=== PATIENT | male | born 1990 | race Caucasian/White ===

== ENCOUNTER 2021-05-05 11:28 | Emergency (ER) | payer MEDICAID, SELFPAY | END 2021-05-05 15:52 | disposition left against medical advice (07) | PROVIDERS: Emergency Provider Emergency Medicine | DX: R06.02 Shortness of breath (principal) ==

== ENCOUNTER 2021-05-09 20:04 | Emergency (ER) | payer MEDICAID, SELFPAY ==
[2021-05-09 20:06] VITALS: BP 160/102; PULSE 107; RESP 16; TEMP 36.5; O2SAT 98; BMI 33.0
--- NOTE | 2021-05-10 | ED.GENADULT ---
HPI - General Adult General Chief complaint: General Medical Stated complaint: high bp Time Seen by Provider: 05/10/21 00:00 Source: patient Mode of arrival: ambulatory Limitations: no limitations History of Present Illness HPI narrative: 30-year-old male came in for evaluation of high blood pressure. [employer]-one pleasant patient recently diagnosed with COVID 19 infection, patient has been home and self quarantine for the past 2 days, patient with history of high blood pressure take 10 mg of lisinopril once a day normally. Noticed to have high blood pressure reading at home patient confirmed that he is compliant with his medication at home. Patient also has been complaining of bilateral flank pain which is worsening since he was diagnosed with COVID. Related Data Allergies Allergy/AdvReac Type Severity Reaction Status Date / Time amlodipine [AMLODIPINE] Allergy Unknown SWELLING Unverified 06/05/20 17:04 Review of Systems Review of Systems: All other systems are reviewed and are negative Constitutional: Reports as per HPI and Reports no additional constitutional complaints Eyes: Reports as per HPI and Reports no additional eye complaints Reports system reviewed and no additional complaints, except as documented Cardiovascular: Reports as per HPI and Reports no additional cardiovascular complaints Respiratory: Reports as per HPI and Reports no additional respiratory complaints Gastrointestinal: Reports as per HPI and Reports no additional gastrointestinal complaints Genitourinary: Reports no additional female genitourinary complaints Musculoskeletal: Reports no additional musculoskeletal complaints Skin/Breast: Reports system reviewed and no additional complaints, except as docu Psychiatric: Reports no additional psychiatric complaints Endocrine: Reports no additional endocrine complaints Hematologic/Lymphatic: Reports no additional hematologic/lymphatic complaints Allergic/Immunologic: Reports no additional allergic/immunologic complaints Reports system reviewed and no additional complaints, except as documented and Reports Abnormal speech present [facility] Past Medical History Medical History Asthma Social History Social History Advance Directives: No Advance Directives Information Provided: Yes Physical Exam Vital Signs: Vital Signs: Last Vital Signs Temp 97.7 F 05/09/21 20:06 Pulse 107 H 05/09/21 20:06 Resp 16 05/09/21 20:06 BP 160/102 H 05/09/21 20:06 Pulse Ox 98 05/09/21 20:06 Body Mass Index 33.0 Vital signs have been reviewed as appeared to be correct. Blood pressure elevated. Heart rate elevated. Respiration rate normal. Temperature normal. Oxygen saturation normal. Appearance: Alert. Oriented X3. No acute distress. Head: Normal external exam. Normocephalic. Atraumatic. No Marie signs noted. No raccoon eyes noted Eyes: PERRLA. EOMI. Conjunctiva and sclera normal. Eyelids normal. ENT: TM's Normal. Pharynx normal. Uvula midline. Moist mucous membranes. No trismus noted. No drooling noted. No muffled voice noted. Neck: Normal inspection. Neck supple. FROM. No adenopathy. Thyroid Normal. No meningeal signs. No neck mass noted. CVS: Normal heart rate and rhythm. Heart sound normal. No murmurs noted. Pulses normal throughout. Respiratory: No respiratory distress. Painless inspiration. Breath sounds normal. No wheezes/rales/rhonchi noted. Chest nontender. No accessory muscle usage noted or decreased air movement noted. Abdomen: Soft and nontender. Bowel sounds normal in all 4 quadrants. No distention noted. No organomegaly noted. No visible injury noted. Back: No CVA tenderness. Full range of motion noted. Skin: Skin warm and dry. Normal skin color. Normal skin turgor. No rashes/lesions/lacerations noted. Extremities: No lower extremity edema. Extremities exhibit normal range of motion. Extremities nontender. Neuro: Oriented X 3. Cranial nerve exam: II-XII are grossly intact No motor deficit. No sensory deficit. Reflexes normal. Course Course Course Narrative: 30-year-old male hypertensive on 10 mg of lisinopril. Patient was given 1 extra dose of lisinopril in the emergency department. Bilateral flank pain that could be normal with COVID infection. UA is clear. Discharge Plan Discharge Clinical Impression: Hypertension, COVID-19 Patient Disposition: Home, Self-Care Instructions: Hypertension (ED) Additional Instructions: Self-quarantine for total of 2 weeks, return if any difficulty breathing, keep recording reading for blood pressure expected lead to be slightly higher than your normal with the COVID infection. If blood pressure is extremely high seek immediate medical attention. Referrals: [facility] [Primary Care Provider] - 2 weeks
[2021-05-10 00:18] VITALS: BP 138/103; PULSE 93; RESP 18; O2SAT 99
[2021-05-10 01:07] VITALS: BP 133/103; PULSE 82
[2021-05-10] MEDS: lisinopriL 10 MG TABLET PO (01:07)
--- NOTE | 2021-05-10 01:13 | PC.NURSE ---
Pt medicated per MAR for BP of 133/103. Pt laughing and joking with this RN without distress noted. pt inquiring about length of time until discharge for ride arrangements and time frame provided without additional questions/concerns. Pt given apple juice per request. UA obtained and sent
[2021-05-10 01:16] LABS: Glucose Urine UA NEG (NEG); Leukocyte Esterase Urine NEG (NEG); Nitrite Urine NEG (NEG); Specific Gravity - Urine 1.025 (1.005-1.025); Urine Blood NEG (NEG); Urine Ketones NEG (NEG); Urine Protein NEG (NEG-TRACE)
[2021-05-10 01:19] LABS: Appearance Urine CLEAR; Color Urine YELLOW
[2021-05-10 02:24] VITALS: BP 130/90; PULSE 98; RESP 18; O2SAT 99
== END 2021-05-10 02:24 | disposition home or self-care (01) ==
PROVIDERS: Emergency Provider Emergency Medicine
DX: I10 Essential (primary) hypertension (principal); U07.1 COVID-19
CPT/HCPCS: 81003; 99283; 99284

== ENCOUNTER 2024-06-29 15:39 | Outpatient (REF) | payer MEDICAID, SELFPAY ==
[2024-06-29 16:15] LABS: MANUAL DIFF FLAG NO
[2024-06-29 16:17] LABS: Basophils Percent Auto 0.5 % (0-2); Eosinophils Absolute Auto 0.2 X10*3/uL (0.0-0.4); Eosinophils Percent Auto 2.4 % (0-4); Hematocrit 43.1 % (42.0-52.0); Hemoglobin 14.9 g/dl (14.0-18.0); Imm Gran Abs Auto 0.03 X10*3/uL (0.00-0.03); Imm Gran Pct Auto 0.4 % (0.0-0.4); Lymphocytes Absolute Auto 2.3 X10*3/uL (1.2-4.9); Lymphocytes Percent Auto 28.2 % (20-40); Mean Corpuscular HGB Conc 34.6 g/dl (31.0-36.0); Mean Corpuscular Hemoglobin 30.2 pg (27.0-33.0); Mean Corpuscular Volume 87.2 fL (80.0-98.0); Mean Platelet Volume 11.4 fL (9.4-12.4); Monocytes Absolute Auto 0.7 X10*3/uL (0.1-1.2); Monocytes Percent Auto 8.2 % (2-11); Neutrophils Percent Auto 60.3 % (45-73); Platelet Count 201 X10*3/uL (160-400); Red Blood Count 4.94 X10*6/uL (4.60-5.80); Red Cell Distribution Width 12.1 % (11.0-16.0); White Blood Count 8.3 X10*3/uL (4.8-10.8)
[2024-06-29 16:53] LABS: Creatinine Urine 141.16 mg/dL; Microalbum/Creatinine Ratio Ur 4.9 ug/mg cr (<30)
[2024-06-29 17:18] LABS: Alanine Aminotransferase 54 U/L (0-40); Albumin Level 4.4 g/dL (3.5-5.0); Alkaline Phosphatase 70 U/L (39-117); Anion Gap 12 (12-20); Aspartate Amino Transferase 25 U/L (5-37); Bilirubin Total 0.5 mg/dL (0.0-1.0); Blood Urea Nitrogen 11 mg/dL (9-16); Carbon Dioxide 28 mmol/L (22-29); Chloride 105 mmol/L (96-108); Cholesterol 166 mg/dL (<200); Estimated Glomerular Filt Rate > 60; Glucose Random 111 mg/dL (60-115); HDL Cholesterol 56 mg/dL (>40); LDL Cholesterol Calculated 91 mg/dL (<100); Potassium 3.6 mmol/L (3.3-5.1); Sodium 141 mmol/L (135-145); Total Protein 7.3 g/dL (6.5-8.0); Triglycerides 99 mg/dL (<150)
[2024-06-29 17:32] LABS: TSH reflex Free T4 0.79 uIU/mL (0.32-4.0)
== END 2024-06-29 15:40 | disposition home or self-care (01) ==
LOC: HO.HHCL 15:39
PROVIDERS: Visit Provider Internal Medicine Geriatric Medicine
DX: I10 Essential (primary) hypertension (principal); E78.00 Pure hypercholesterolemia, unspecified; R60.9 Edema, unspecified
CPT/HCPCS: 36415; 80053; 80061; 82043; 82570; 84443; 85025

== ENCOUNTER 2024-09-25 14:07 | Outpatient (REF) | payer MEDICAID, SELFPAY ==
[2024-09-25 16:12] LABS: MANUAL DIFF FLAG NO
[2024-09-25 16:16] LABS: Basophils Percent Auto 0.4 % (0-2); Eosinophils Absolute Auto 0.2 X10*3/uL (0.0-0.4); Eosinophils Percent Auto 2.3 % (0-4); Hematocrit 43.4 % (42.0-52.0); Hemoglobin 14.7 g/dl (14.0-18.0); Imm Gran Abs Auto 0.02 X10*3/uL (0.00-0.03); Imm Gran Pct Auto 0.3 % (0.0-0.4); Lymphocytes Absolute Auto 1.9 X10*3/uL (1.2-4.9); Lymphocytes Percent Auto 26.2 % (20-40); Mean Corpuscular HGB Conc 33.9 g/dl (31.0-36.0); Mean Corpuscular Hemoglobin 29.5 pg (27.0-33.0); Mean Platelet Volume 11.3 fL (9.4-12.4); Monocytes Absolute Auto 0.8 X10*3/uL (0.1-1.2); Monocytes Percent Auto 10.6 % (2-11); Neutrophils Absolute Auto 4.4 x10*3/uL (2.0-8.3); Neutrophils Percent Auto 60.2 % (45-73); Platelet Count 232 X10*3/uL (160-400); Red Blood Count 4.99 X10*6/uL (4.60-5.80); Red Cell Distribution Width 12.1 % (11.0-16.0); White Blood Count 7.3 X10*3/uL (4.8-10.8)
[2024-09-25 16:28] LABS: Estimated Average Glucose 123 mg/dL; Hemoglobin A1C 152.8235 umol/L; Hemoglobin A1c % 5.9 % (<6.0); Total Hemoglobin (HGBA1C) 3774.6647 umol/L
[2024-09-25 17:02] LABS: Alanine Aminotransferase 104 U/L (0-40); Albumin Level 4.4 g/dL (3.5-5.0); Anion Gap 11 (12-20); Aspartate Amino Transferase 42 U/L (5-37); Bilirubin Total 0.3 mg/dL (0.0-1.0); Blood Urea Nitrogen 10 mg/dL (9-16); Calcium 9.7 mg/dL (8.4-10.2); Carbon Dioxide 28 mmol/L (22-29); Chloride 106 mmol/L (96-108); Cholesterol 251 mg/dL (<200); Estimated Glomerular Filt Rate > 60; Glucose Random 108 mg/dL (60-115); HDL Cholesterol 49 mg/dL (>40); LDL Cholesterol Calculated 141 mg/dL (<100); Sodium 141 mmol/L (135-145); Total Protein 7.6 g/dL (6.5-8.0); Triglycerides 306 mg/dL (<150)
[2024-09-25 17:22] LABS: Alkaline Phosphatase 70 U/L (39-117)
[2024-09-25 17:31] LABS: TSH reflex Free T4 0.88 uIU/mL (0.32-4.0)
[2024-09-26 09:38] LABS: HIV AB/AG Nonreactive (Nonreactive); HIV Num 1 0.06 S/CO (0.00-0.99); ~HepC Num1 0.07 S/CO (0.00-0.79); ~Hepatitis C Antibody Nonreactive (Nonreactive)
== END 2024-09-25 14:08 | disposition home or self-care (01) ==
LOC: HO.HHCL 14:07
PROVIDERS: Visit Provider Internal Medicine
DX: I10 Essential (primary) hypertension (principal)
CPT/HCPCS: 36415; 80053; 80061; 82306; 83036; 84443; 85025; 86803; 87389

== ENCOUNTER → 2024-10-02 20:30 | Outpatient (BNV) | payer MEDICAID, SELFPAY | PROVIDERS: PCP Internal Medicine; Visit Provider Psychiatry & Neurology Neurology | DX: G47.33 Obstructive sleep apnea (adult) (pediatric) (principal) | CPT/HCPCS: 95810 ==

== ENCOUNTER → 2024-10-02 20:30 | Outpatient (REF) | payer MEDICAID, SELFPAY | LOC: HO.SL 20:30 | PROVIDERS: PCP Internal Medicine; Visit Provider Internal Medicine | DX: G47.30 Sleep apnea, unspecified (principal); F31.9 Bipolar disorder, unspecified; F41.1 Generalized anxiety disorder; E66.9 Obesity, unspecified; R06.81 Apnea, not elsewhere classified; G47.10 Hypersomnia, unspecified; R06.83 Snoring | CPT/HCPCS: 95810 ==

== ENCOUNTER → 2024-10-18 08:02 | Outpatient (BNV) | payer MEDICAID, SELFPAY | PROVIDERS: PCP Internal Medicine; Visit Provider Radiology Diagnostic Radiology | DX: N28.1 Cyst of kidney, acquired (principal) | CPT/HCPCS: 76700 ==

== ENCOUNTER 2024-12-12 13:53 | Outpatient (REF) | payer MEDICAID, SELFPAY | END 2024-12-12 13:54 | disposition home or self-care (01) | LOC: HO.HHCLNP 13:53 | PROVIDERS: Visit Provider Internal Medicine | DX: R10.84 Generalized abdominal pain (principal) | CPT/HCPCS: 87338 ==

== ENCOUNTER 2024-12-21 13:22 | Outpatient (REF) | payer MEDICAID, SELFPAY ==
--- OUTSIDE RECORDS SUMMARY | 2024-12-21 15:14 | XMS_ITS | Clinical Summary ---
Author Organization [facility] Address [address] [phone] Phone Care Team Providers Care Automatic Coin Machine Mechanic Name Role Phone Yuli Prakash MD Primary Care Provide r Allergies Active Allergy Reactions Criticality Noted Date Comments Amlodipine 06/29/2024 Leg swelling Hydralazine 08/30/2024 Other Reaction(s): Chest Pain Lisinopril Swelling 08/30/2024 Medications losartan (COZAAR) 100 MG tablet Take 100 mg by mouth 1 (one) time each day Active atorvastatin (LIPITOR) 20 MG tablet Take 20 mg by mouth in the morning. 06/29/20 25 Active famotidine (PEPCID) 10 MG tablet Take 10 mg by mouth in the morning and 10 mg in the evening. Active senna-docusate (PERICOLACE) 8.6-50 MG per tablet Take 1 tablet by mouth in the morning. 4 12/22/19 25 Discontinu ed(Med List Maintenanc e) metoprolol succinate XL (TOPROL XL) 50 MG 24 hr tablet Take 50 mg by mouth in the morning. 4 12/22/19 25 Discontinu ed(Med List Maintenanc e) lamoTRIgine (LaMICtal) 100 MG tablet Take 100 mg by mouth at bed time 4 12/22/19 25 Discontinu ed(Med List Maintenanc e) hydrOXYzine (ATARAX) 25 MG tablet TAKE 1 OR 2 TABLETS BY MOUTH DAILY NEEDED 4 12/22/19 25 Discontinu ed(Med List Maintenanc e) hydroCHLOROthia zide 25 MG tablet Take 25 mg by mouth in the morning. 4 12/22/19 25 Discontinu ed(Med List Maintenanc e) Blood Pressure Monitoring (Blood Pressure Cuff) misc 1 each 4 12/22/19 25 Discontinu ed(Med List Maintenanc e) Active Problems Problem Noted Date Diagnosed Date Constipation 08/30/2024 Primary hypertension 08/30/2024 COVID-19 05/26/2021 Mild intermittent asthma 06/20/2015 Generalized anxiety disorder 06/20/2015 Resistant hypertension 05/23/2015 Obesity 05/23/2015 Encounters Date Type Department Care Team Description 12/21/2024 11:45 AM EDT Office Visit [facility] [address] [phone] Ubaldo Estrada MD Hypertension (Primary Dx); Obstructive sleep apnea syndrome from Last 3 Months Immunizations Name Administration Dates Next Due Influenza, Quadrivalent, With Preservative 06/29 Pneumococcal Polysaccharide 03/18/2015 TD Preservative Free 07/07/2015 Tdap 06/29/2018 Social History Tobacco Use Types Packs/Day Years Used Date Smoking Tobacco: Never Assessed Sex and Gender Information Value Date Recorded Sex Assigned at Not on file Legal Sex Male 1:35 PM EST Gender Identity Not on file Sexual Orientation Not on file Last Filed Vital Signs Vital Sign Reading Time Taken Comments Blood Pressure 129/88 12/21/2024 11:56 AM EDT Pulse - - Temperature - - Respiratory Rate - - Oxygen Saturation - - Inhaled Oxygen Concentration - - Weight 112 kg (248 lb) 12/21/2024 11:56 AM EDT Height 180.3 cm (5' 11 ) 12/21/2024 11:56 AM EDT Body Mass Index 34.59 12/21/2024 11:56 AM EDT Plan of Treatment Upcoming Encounters Date Type Department Care Team (Late st Contact Info) Description 02/07/2025 2:15 PM EDT Office Visit [facility] [address] [phone] Ubaldo Estrada MD [address] [phone] Health Maintenance Due Date Last Done Comments Hepatitis B Vaccine (1 of 3 - 19+ 3-dose series) 08/22 Pneumococcal Vaccine: Pediat rics (0 to 5 Years) and At-Risk Patients (6 to 64 Years) (2 of 2 - PCV) 03/18/2016 03/18/2015 Influenza Vaccine (Season Ended) 2025 06/29/20 18 Insurance , [address] [place] [id number] [place] Care Teams Automatic Coin Machine Mechanic Relationship Specialty Start Date End Date Yuli Prakash MD [address] [place] [phone] PCP - General Internal Medicine 09/03/24
--- OUTSIDE RECORDS SUMMARY | 2024-12-21 15:14 | XMS_ITS | Encounter Summary ---
Author Organization [facility] Address [address] [phone] Phone Care Team Providers Care Renewals Representative Name Role Phone Yuli Prakash MD Primary Care Provide r Reason for Referral * Cardiac Services (Routine) - Pending Review Specialty Diagnoses / Procedures Referred By Conthaja t Referred To Contact Diagnoses Hypertension Procedures Initiate ABPM Monitoring Ubaldo Estrada MD [address] [address] Phone: tel: fax: Referral ID Status Reason Start Date Expiration Date V isits Requested Visits Authorized [id number] Pending Review 12/21/2024 12/21/2025 1 1 Reason for Visit * Reason Comments Chronic Kidney Disease Encounter Details Date Type Department Care Team (Late st Contact Info) Description 12/21/2024 11:45 AM EDT Office Visit [facility] [address] [phone] Ubaldo Estrada MD [address] [phone] Hypertension (Primary Dx); Obstructive sleep apnea syndrome Social History Tobacco Use Types Packs/Day Years Used Date Smoking Tobacco: Never Assessed Sex and Gender Information Value Date Recorded Sex Assigned at Not on file Legal Sex Male 1:35 PM EST Gender Identity Not on file Sexual Orientation Not on file documented as of this encounter Last Filed Vital Signs Vital Sign Reading Time Taken Comments Blood Pressure 129/88 12/21/2024 11:56 AM EDT Pulse - - Temperature - - Respiratory Rate - - Oxygen Saturation - - Inhaled Oxygen Concentration - - Weight 112 kg (248 lb) 12/21/2024 11:56 AM EDT Height 180.3 cm (5' 11 ) 12/21/2024 11:56 AM EDT Body Mass Index 34.59 12/21/2024 11:56 AM EDT documented in this encounter Progress Notes * Ubaldo Estrada MD - 12/21/2024 11:45 AM EDT [facility] Patient Name: Garret Noel, Male Date of : 1990, 34 y.o. Date: 12/21/2024 Referring MD: No primary care provider on file. PCP: Yuli Prakash MD Thank you for allowing me to participate in the care of your patient Reason For Visit: I had the pleasure of seeing your patient for evaluation of HTN. He has a history of HTN for at least 10 years. He complains of headaches, migraines. He does use tobacco and ETOH intake is moderate. He uses marijuana. He lost weight, he does not add salt and he is pretty active playing sports. He denies the use of NSAID. Caffeine intake is moderate. He feels anxious in the clinical setting. The following portions of the patient's chart were reviewed in this encounter and updated as appropriate: Allergies Meds Problems Med Hx Surg Hx Fam Hx Constitutional: Negative for chills, fever, malaise/fatigue and weight loss. HENT: Negative for ear pain, hearing loss and tinnitus. Eyes: Negative for blurred vision, double vision, photophobia and pain. Respiratory: Negative for cough, hemoptysis, sputum production, shortness of breath and wheezing. Cardiovascular: Negative for chest pain, palpitations, orthopnea, claudication and leg swelling. Gastrointestinal: Negative for abdominal pain, diarrhea, nausea and vomiting. Genitourinary: Negative for dysuria, flank pain, frequency, hematuria and urgency. Musculoskeletal: Negative for myalgias. Skin: Negative for itching and rash. Neurological: Negative for dizziness, tingling and headaches. Psychiatric/Behavioral: Negative for depression. Full 13 point review of systems unremarkable except as noted above. Past Medical History: Diagnosis Date Asthma Hypertension History reviewed. No pertinent surgical history. Social History Tobacco Use Smoking status: Not on file Smokeless tobacco: Not on file Substance Use Topics Alcohol use: Not on file History reviewed. No pertinent family history. Current Outpatient Medications Medication Sig Dispense Refill atorvastatin (LIPITOR) 20 MG tablet Take 20 mg by mouth in the morning. famotidine (PEPCID) 10 MG tablet Take 10 mg by mouth in the morning and 10 mg in the evening. losartan (COZAAR) 100 MG tablet Take 100 mg by mouth 1 (one) time each day No current facility-administered medications for this visit. Allergies Allergen Reactions Amlodipine Leg swelling Hydralazine Other Reaction(s): Chest Pain Lisinopril Swelling Objective: Vitals: 12/21/24 1156 BP: 129/88 Weight: 248 lb (112 kg) Height: 5' 11 (1.803 m) Physical Exam Constitutional: Oriented to person, place, and time. HEENT: Mouth/Throat: Oropharynx is clear and moist. Eyes: Pupils are equal, round, and reactive to light. Neck: No JVD present. Cardiovascular: Regular rhythm. Pulmonary/Chest: Breath sounds normal. Abdominal: Soft. There is no abdominal tenderness. Musculoskeletal: Normal range of motion. Neurological: Alert and oriented to person, place, and time. Skin: Skin is warm. Psychiatric: Normal mood and affect. No results found for: EGFRAFR eGFR Non- Date Value Ref Range Status 06/12/2021 114 > OR = 60 mL/min/1.73m2 Final Chemistry Lab Units 09/25/24 1409 06/29/24 1545 CREATININE mg/dL 0.85 0.82 BUN mg/dL 10 11 GLUCOSE mg/dL 108 111 POTASSIUM mmol/L 4 3.6 SODIUM mmol/L 141 141 CO2 mmol/L 28 28 CHLORIDE mmol/L 106 105 ALBUMIN g/dL 4.4 4.4 BILIRUBIN TOTAL mg/dL 0.3 0.5 AST U/L 42* 25 ALT U/L 104* 54* Bone Mineral Lab Units 09/25/24 1409 06/29/24 1545 CALCIUM mg/dL 9.7 10 ALK PHOS U/L 70 70 No lab exists for component: SPECGRAV , GLUCOSEUR , BILIRUBINUR , RBCUR , UPROTEIN , LEUKOCYTESUR , NITRITE PLAN: Assessment & Plan 1. Hypertension 2. Obstructive sleep apnea syndrome 34 year old patient with history of HTN in the setting of normal kidney function. He most likely has a combination of essential HTN and secondary HTN (ISIDORO). He has not yet used a CPAP mask. I will order a 24 hour ambulatory blood pressure monitor to rule out office resistant HTN. Blood pressure is slightly above target. He is on losartan 100 mg daily. REC Life style modification Urine protein to creatinine ratio 24 hour ABPM Orders Placed This Encounter Urine Albumin / Creatinine Ratio Initiate ABPM Monitoring Return in 6 weeks (on 02/01/2025). Ubaldo Estrada MD documented in this encounter Plan of Treatment Upcoming Encounters Date Type Department Care Team (Late st Contact Info) Description 02/07/2025 2:15 PM EDT Office Visit [facility] [address] [phone] Ubaldo Estrada MD [address] [phone] Scheduled Orders Name Type Priority Associated Diagnoses Orde r Schedule Initiate ABPM Monitoring Cardiac Services Routine Hypertension Expected: 12/22/2024 (Approximate), Expires: 12/21/2026 Urine Albumin / Creatinine Ratio Lab Routine Hypertension Expected: 12/21/2024, Expires: 01/20/2026 documented as of this encounter Visit Diagnoses Diagnosis Hypertension- Primary Obstructive sleep apnea syndrome documented in this encounter Care Teams Renewals Representative Relationship Specialty Start Date End Date Yuli Prakash MD [address] [place] [phone] PCP - General Internal Medicine 09/03/24 documented as of this encounter
[2024-12-21 16:44] LABS: Creatinine Urine 60.32 mg/dL; Microalbumin Urine < 5.0 mg/L
== END 2024-12-21 13:23 | disposition home or self-care (01) ==
LOC: HO.HHCL 13:22
PROVIDERS: Visit Provider Internal Medicine Nephrology
DX: I10 Essential (primary) hypertension (principal)
CPT/HCPCS: 82570

== ENCOUNTER 2025-01-31 11:24 | Emergency (ER) | payer MEDICAID, SELFPAY ==
--- NOTE | ~2025-01-31 | XR_ITS ---
EXAMINATION: XR CHEST 1 VIEW HISTORY: cp COMPARISON: There are no prior studies for comparison. FINDINGS: A single AP portable view of the chest performed at 12:02 PM is submitted. There are low lung volumes. The lungs are clear. There is no pleural effusion, pneumothorax, or pulmonary vascular congestion. The heart is normal in size. The bones are intact. XR/XR chest 1V IMPRESSION: Low lung volumes. The lungs are clear. Electronically signed by: Milton Hernadez MD 01/31/2025 12:10 PM EDT
--- NOTE | 2025-01-31 11:27 | ECG_ITS ---
Test Reason : CHEST PAIN Blood Pressure : */* mmHG Vent. Rate : 84 BPM Atrial Rate : 84 BPM P-R Int : 168 ms QRS Dur : 96 ms QT Int : 388 ms P-R-T Axes : 35 -1 18 degrees QTcB Int : 458 ms Normal sinus rhythm with sinus arrhythmia Minimal voltage criteria for LVH, may be normal variant ( R in aVL ) Borderline ECG When compared with ECG of 15-May-2020 05:11, No significant change was found Referred By: Generic ED Physician Electronically Signed By: LJ MILLAN MD
[2025-01-31 11:29] VITALS: BP 159/102; BP 174/125; PULSE 79; PULSE 85; RESP 18; TEMP 36.8; O2SAT 97; O2SAT 98; BMI 33.4
[2025-01-31 11:59] LABS: MANUAL DIFF FLAG NO
[2025-01-31 12:00] LABS: Basophils Percent Auto 0.3 % (0-2); Hematocrit 43.7 % (42.0-52.0); Hemoglobin 15.1 g/dl (14.0-18.0); Imm Gran Abs Auto 0.05 X10*3/uL (0.00-0.03); Imm Gran Pct Auto 0.5 % (0.0-0.4); Lymphocytes Absolute Auto 0.9 X10*3/uL (1.2-4.9); Lymphocytes Percent Auto 8.1 % (20-40); Mean Corpuscular HGB Conc 34.6 g/dl (31.0-36.0); Mean Corpuscular Hemoglobin 30.5 pg (27.0-33.0); Mean Corpuscular Volume 88.3 fL (80.0-98.0); Mean Platelet Volume 11.1 fL (9.4-12.4); Monocytes Absolute Auto 0.6 X10*3/uL (0.1-1.2); Monocytes Percent Auto 5.1 % (2-11); Neutrophils Absolute Auto 9.4 x10*3/uL (2.0-8.3); Platelet Count 197 X10*3/uL (160-400); Red Blood Count 4.95 X10*6/uL (4.60-5.80); Red Cell Distribution Width 11.7 % (11.0-16.0); White Blood Count 10.9 X10*3/uL (4.8-10.8)
--- NOTE | 2025-01-31 12:00 | PC.NURSE ---
Patient presents to ED from [facility] lockup c/o chest pain thats been lasting for 1 week. PMH HTN, patient compliant with medications, patient hypertensive 163/95 but all other vitals normal. Patient denies chest pressure at this time but c/o of abdominal pain 04/28. Patient last BM yesterday, reports constipation. Patient has 20G in LAC. Xray being performed, results pending. Blood collect/sent to lab. UA collected/ sent to lab. Plan of care on going.
--- NOTE | 2025-01-31 12:02 | ED_ITS ---
HPI - Chest Pain General Chief Complaint: Chest Pain Stated Complaint: CHEST PRESSURE X 1 WEEK Time Seen by Provider: 01/31/25 11:48 Source: patient Limitations: no limitations History of Present Illness HPI narrative: This is a 34 years old under arrest presented to the emergency department complaining of chest pain for about a week he also reported nausea and vomiting. He has a history of hypertension he takes losartan he has not taking his BP medication today. MD complaint: chest pain Onset (ago): day(s) (7) Timing of current episode: constant Onset: during rest Pain location: left chest Pain radiation: none Quality: aching Exacerbating factors: nothing Associated symptoms: nausea Risk Factors Coronary artery disease risk factors: none Thoracic aortic dissection risk factors: none Related Data Allergies Allergy/AdvReac Type Severity Reaction Status Date / Time amlodipine [AMLODIPINE] Allergy Unknown SWELLING Verified 01/31/25 11:32 Review of Systems 2 Constitutional: Constitutional: Reports no additional constitutional complaints ENT: Reports system reviewed and no additional complaints, except as documented Cardiovascular: Cardiovascular: Reports chest pain Respiratory: Respiratory: Reports as per HPI Gastrointestinal: Gastrointestinal: Reports as per HPI [facility] Past Medical History Attestation statement: The following information was validated with the patient. [facility] Narrative: Hypertension Medical History Asthma Social History Social History Smoked in Last 30 Days: No Use of substances other than those prescribed or required for medical reasons: Yes Substance Use Type: Marijuana Advance Directives: No Advance Directives Information Provided: Yes Do you have a plan to hurt others: No Plan Physical Exam 2 Vital Signs: Vital Signs: Last Vital Signs Temp 97.5 F 01/31/25 14:13 Pulse 76 01/31/25 14:13 Resp 15 01/31/25 14:13 BP 150/100 H 01/31/25 14:13 Pulse Ox 99 01/31/25 14:13 O2 Del Method Room Air 01/31/25 14:13 BMI result Body Mass Index 33.4 No acute distress comfortable in the stretcher Const: General: cooperative Nutritional Appearance: well nourished O rientation/consciousness: patient oriented x3 HEENT: Head: Yes normal to inspection Ears: hearing grossly normal bilaterally Face and sinus: Yes normal facial exam Neck: Neck: Yes normal visual inspection Chest: Chest palpation & inspection: normal inspection of the chest Resp: Effort & Inspection: normal respiratory effort Cardio: Jugular venous distension: no JVD Rate: regular rate Rhythm: r egular rhythm GI: Inspection: Yes normal to inspection Palpation (GI): Soft to palpation, not firm, nontender and no guarding Auscultation: normal bowel sounds Skin: General skin exam: no rashes or lesions noted and elasticity normal Neuro: General: patient oriented x3 Extrem: General: Yes normal to inspection Course Reevaluation(s) Reevaluation #1: On re-examination at this time he is feeling better high sensitive troponin is negative after pretty much a week of chest pain so I do not think we need to do another 2nd troponin, chest x-ray is normal Time: 15:06 Medications Administered Discontinued Medications Generic Name Dose Route Start Last Admin Trade Name Freq PRN Reason Stop Dose Admin Losartan Potassium 100 mg 01/31/25 12:05 01/31/25 12:16 Losartan Potassium 50 Mg Tablet PO 01/31/25 12:06 100 mg ONCE ONE Administration Protocol Ondansetron HCl 4 mg 01/31/25 12:06 01/31/25 12:16 Ondansetron Hcl 4 Mg/2 Ml Vial IVPUSH 01/31/25 12:07 4 mg ONCE ONE Administration Medical Decision Making Medical Decision Making [facility] Narrative: Patient is here complaining of chest pain for about a week history of hypertension we will obtain EKG labs Differential Diagnosis Differential Diagnoses: The differential diagnosis associated with the presentation includes Acute coronary syndrome/musculoskeletal chest pain/pericarditis Admission/Observation Consideration of admission/observation: Escalation of care including admission/observation considered Lab Data [facility] Lab Attestation statement: I reviewed the patient's lab results. 01/31/25 11:54 01/31/25 11:54 Labs: Lab Results 01/31/25 01/31/25 Range/Units 11:54 12:09 WBC 10.9 H (4.8-10.8) X10*3/uL RBC 4.95 (4.60-5.80) X10*6/uL Hgb 15.1 (14.0-18.0) g/dl Hct 43.7 (42.0-52.0) % MCV 88.3 (80.0-98.0) fL MCH 30.5 (27.0-33.0) pg MCHC 34.6 (31.0-36.0) g/dl RDW 11.7 (11.0-16.0) % Plt Count 197 (160-400) X10*3/uL MPV 11.1 (9.4-12.4) fL Immature Gran % (Auto) 0.5 H (0.0-0.4) % Neut % (Auto) 86.0 H (45-73) % Lymph % (Auto) 8.1 L (20-40) % Bowie % (Auto) 5.1 (2-11) % Eos % (Auto) 0.0 (0-4) % Baso % (Auto) 0.3 (0-2) % Lymph # (Auto) 0.9 L (1.2-4.9) X10*3/uL [place]ie # (Auto) 0.6 (0.1-1.2) X10*3/uL Eos # (Auto) 0.0 (0.0-0.4) X10*3/uL Baso # (Auto) 0.0 (0.0-0.2) X10*3/uL Abs Immat Gran (auto) 0.05 H (0.00-0.03) X10*3/uL Absolute Neuts (auto) 9.4 H (2.0-8.3) x10*3/uL Absolute Nucleated RBC 0.000 (0.0-0.012) X10*3/uL Nucleated RBC % (auto) 0.0 (0.0-0.2) /100WBC Sodium 143 (135-145) mmol/L Potassium 4.1 (3.3-5.1) mmol/L Chloride 108 (96-108) mmol/L Carbon Dioxide 26 (22-29) mmol/L Anion Gap 13 (12-20) BUN 9 (9-16) mg/dL Creatinine 0.81 (0.5-1.4) mg/dL Estim Creat Clear Calc 159.6 Estimated GFR > 60 Random Glucose 114 (60-115) mg/dL Calcium 9.8 (8.4-10.2) mg/dL Total Bilirubin 0.3 (0.0-1.0) mg/dL AST 27 (5-37) U/L ALT 51 H (0-40) U/L Alkaline Phosphatase 72 (39-117) U/L Troponin I High Sens < 2.7 (<3.5-35.0) ng/L Total Protein 7.9 (6.5-8.0) g/dL Albumin 4.8 (3.5-5.0) g/dL Urine Color Yellow Urine Appearance Clear Urine pH 7.0 (5.0-9.0) Ur Specific [place] 1.010 (1.005-1.025) Urine Protein Negative (Neg-Trace) mg/dL Urine Glucose (UA) Negative (Negative) mg/dL Urine Ketones Negative (Negative) mg/dL Urine Blood Negative (Negative) Urine Nitrite Negative (Negative) Ur Leukocyte Esterase Negative (Negative) Independent Interpretation I performed an independent interpretation of an: EKG (EKG normal sinus rhythm rate [address]-T segment isoelectric) and Plain X-Ray Interpretation: NAD Radiology Impression Discussion of test interpretation with radiology: I have reviewed the radiologist's reading. Radiologist Impression: HISTORY: cp COMPARISON: There are no prior studies for comparison. FINDINGS: A single AP portable view of the chest performed at 12:02 PM is submitted. There are low lung volumes. The lungs are clear. There is no pleural effusion, pneumothorax, or pulmonary vascular congestion. The heart is normal in size. The bones are intact. XR/XR chest 1V IMPRESSION: Low lung volumes. The lungs are clear. Electronically signed by: Milton Hernadez MD 01/31/2025 12:10 PM EDT RP Dictated By: Milton Hernadez MD Signed By: <Electronically signed by Milton Hernadez MD in OV> Discharge Plan Discharge Clinical Impression: Chest pain Patient Disposition: Home, Self-Care Instructions: Chest Pain (DC) Additional Instructions: Follow-up with your primary care physician return to the ED if worse Referrals: Yuli Prakash MD [Primary Care Provider] - Print Language: Syrian
[2025-01-31 12:10] VITALS: BP 163/95; PULSE 83; RESP 16; TEMP 37.1; O2SAT 98
[2025-01-31 12:14] LABS: Alanine Aminotransferase 51 U/L (0-40); Albumin Level 4.8 g/dL (3.5-5.0); Alkaline Phosphatase 72 U/L (39-117); Anion Gap 13 (12-20); Aspartate Amino Transferase 27 U/L (5-37); Bilirubin Total 0.3 mg/dL (0.0-1.0); Blood Urea Nitrogen 9 mg/dL (9-16); Calcium 9.8 mg/dL (8.4-10.2); Carbon Dioxide 26 mmol/L (22-29); Chloride 108 mmol/L (96-108); Creatinine Clr Calc Pharmacy 159.6; Estimated Glomerular Filt Rate > 60; Glucose Random 114 mg/dL (60-115); Potassium 4.1 mmol/L (3.3-5.1); Sodium 143 mmol/L (135-145); Total Protein 7.9 g/dL (6.5-8.0)
[2025-01-31 12:16] VITALS: BP 163/95
[2025-01-31] MEDS: Losartan Potassium 50 MG TABLET 100 MG PO (12:16)
[2025-01-31] MEDS: ondansetron HCL 4 MG/2 ML VIAL IVPUSH (12:16)
[2025-01-31 12:18] LABS: Appearance Urine Clear; Color Urine Yellow; Glucose Urine UA Negative (Negative); Leukocyte Esterase Urine Negative (Negative); Nitrite Urine Negative (Negative); Urine Blood Negative (Negative); Urine Ketones Negative (Negative); Urine Protein Negative (Neg-Trace)
[2025-01-31 12:23] LABS: Troponin-I High Sensitivity < 2.7 ng/L (<3.5-35.0)
--- OUTSIDE RECORDS SUMMARY | 2025-01-31 12:48 | XMS_ITS | Clinical Summary ---
Demographics Address [address] [place] [address] Mobile Phone Home Phone Email Address Email Address Email Address Preferred Language en Marital Status Single Confucianism Affiliation Unknown Race Other Race Ethnic Group Unknown Author Organization [employer] Address [address] [place] [address] Care Team Providers Care Director Of Security Name Role Phone Yuli Prakash MD Primary Care Provide r Allergies Active Allergy Reactions Criticality Noted Date Comments Amlodipine 06/29/2024 Leg swelling Hydralazine Chest Pain 08/30/2024 Lisinopril Swelling 08/30/2024 Medications Blood Pressure Monitoring (Blood Pressure Cuff) miscIndications:P rimary hypertension 1 each Once daily. 1 each 08/30/2024 Active senna-docusate sodium (Senokot-S) 8.6-50 MG tabletIndications :Constipation, unspecified constipation type Take 1 tablet by mouth Once per day. 30 tablet 11 08/30/2024 08/30/20 25 Active famotidine (Pepcid) 20 MG tabletIndications :Generalized abdominal pain Take 1 tablet (20 mg) by mouth 2 times daily. 60 tablet 2 12/06/2024 12/07/19 26 Active losartan (Cozaar) 100 MG tabletIndications :Hypertension, unspecified type Take 1 tablet (100 mg) by mouth Once per day. 90 tablet 3 12/06/2024 12/07/19 26 Active atorvastatin (Lipitor) 20 MG tabletIndications :Hypertension, unspecified type,High cholesterol Take 1 tablet (20 mg) by mouth Once per day. 30 tablet 11 12/06/2024 12/07/19 26 Active Active Problems Problem Noted Date Diagnosed Date Generalized abdominal pain 12/06/2024 Primary hypertension 08/30/2024 Assessment & Plan (12/06/2024 2:45 PM EDT): I advised low-sodium diet and to continue with weight loss journey I advised to take his losartan every day without missing any dose I advised to follow-up with cardiology and nephrology, I printed nephrology referral for him to call for his appointment Assessment & Plan (08/30/2024 1:38 PM EST): I added today hydrochlorothiazide 25mg dily, c/w losartan 50mg daily and metoprolol 50mg daily I advise low Na diet RTC 2 weeks with nurse for BP check if BP is not at goal plan is to increase hydrochlorothiazide to 50mg Constipation 08/30/2024 Assessment & Plan (12/06/2024 2:44 PM EDT): It was advised to drink more water and add more fiber to his diet continue with Senokot as needed Patient referred to gastroenterology for further assessment and management Assessment & Plan (08/30/2024 1:38 PM EST): I advise to add fiber on diet and increase water intake I also advised walks I prescribed today senokot COVID-19 05/26/2021 Generalized anxiety disorder 06/20/2015 Mild intermittent asthma 06/20/2015 Obesity 05/23/2015 Resistant hypertension 05/23/2015 Assessment & Plan (08/30/2024 1:38 PM EST): I will refer him to cardiology and nephrology Encounters Date Type Department Care Team Description 01/31/2025 Orders Only [facility] External Provider, [facility] 12/19/2024 Telephone [facility] MEDICINE [address] [place] [address] Rosa Ramos, RN Results 12/06/2024 10:45 AM EDT Office Visit [facility]INE [address] [place] [address] Yuli Prakash MD Generalized abdominal pain (Primary Dx); Constipation, unspecified constipation type; Hypertension, unspecified type; High cholesterol; Primary hypertension 12/06/2024 Travel 11/30/2024 Population Health Risk Score [facility] () Department [address] [place] [phone] Provider, Population Health Generic 11/28/2024 Patient Outreach [facility] MEDICINE [address] [place] [phone] Yuli Prakash MD Pre-visit Planning ((Unable to reach for PVP screening, LVM)) from Last 3 Months Immunizations Immunization Administration Dates Next Due Influenza injectable quadriv alent IIV4 with preservative 06/29/2018 Pneumococcal Polysaccharide PPSV23 03/18/2015 Td (adult), 5 Lf tetanus tox oid, preservative free, adsorbed 07/07/2015 Tdap 06/29/2018 Social History Tobacco Use Types Packs/Day Years Used Date Smoking Tobacco: Former Cigarettes Passive Smoke Exposure: Past Smokeless Tobacco: Never Tobacco Cessation:Counseling Given: Not Answered Alcohol Use Standard Drinks/Week Comments Never 0 (1 standard drink = 0.6 oz pur e alcohol) Depression Answer Date Recorded Patient Health Questionnaire-9 Score 0 08/30/2024 Patient Health Questionnaire-9 Score 0 08/30/2024 Last PHQ-9: Questionnaire Data Not on file 1 10/31/2023 Housing Stability Answer Date Recorded What is your housing situation today? I have jannette ann 08/30/[address] you li ve. Do you have problems with any of the following? None of the above 08/30/2024 Food Insecurity Answer Date Recorded Within the past 12 months, y ou worried that your food would run out before you got money to buy more: Never True 08/23/2024 Within the past 12 months,th e food you bought just didn't last and you didn't have enough money to get more: Never True 01/2024 Transportation Answer Date Recorded In the past 12 months, has l ack of transportation kept you from medical appts, meetings, work or from getting things needed for daily living? No 08/23/2024 Utilities Answer Date Recorded In the past 12 months, has t he electric, gas, oil or water company threatened to shut off services in your home? No 08/23/2024 Depression Answer Date Recorded Patient Health Questionnaire-2 Score 0 08/30/2024 Internet Access Answer Date Recorded Internet Access Q1 No 08/30/2024 Internet Access Q2 I do not want or need it 08/19 Sex and Gender Information Value Date Recorded Sex Assigned at Male 07/19/2022 10:16 AM EDT Legal Sex Male 10:16 AM EDT Gender Identity Male 07/19/2022 10:16 AM EDT Sexual Orientation Straight 07/19/2022 10 :16 AM EDT Last Filed Vital Signs Vital Sign Reading Time Taken Comments Blood Pressure 143/91 12/06/2024 11:24 AM EDT Pulse 93 12/06/2024 10:56 AM EDT Temperature 35.8 ??C (96.4 ??F) 12/06/2024 10:56 AM E DT Respiratory Rate 18 12/06/2024 10:56 AM EDT Oxygen Saturation 97% 12/06/2024 10:56 AM EDT Inhaled Oxygen Concentration - - Weight 113 kg (249 lb 3.2 oz) 12/06/2024 10:56 A M EDT Height 177.8 cm (5' 10 ) 12/06/2024 10:56 AM EDT Body Mass Index 35.76 12/06/2024 10:56 AM EDT Plan of Treatment Upcoming Encounters Date Type Department Care Team (Late st Contact Info) Description 03/06/2025 10:00 AM EDT Office Visit [facility] MEDICINE [address] [place] [phone] Yuli Prakash MD [address] [place] [address] Health Maintenance Due Date Last Done Comments Family Planning (PISQ) 2004 Hepatitis B Vaccines (1 of 3 - 19+ 3-dose series) 2008 Pneumococcal Vaccine: Pediatrics (0 to 5 Years) and At-Risk Patients (6 to 49) Years) (2 of 2 - PCV) 03/18/2016 03/18/2015 COVID-19 Vaccine ( season) 2024 Influenza Vaccine (#1) 2024 06/29/2018 Alcohol/Substance Use Screening 08/30/2025 08/30/2024 Depression Screening 08/30/2025 08/30/2024, 08/30/20 SDOH Screening 08/30/2025 08/30/2024 Diabetes: Hemoglobin A1C 09/25/2025 025, 02/05/2021, 03/14/2020 Tobacco Screening 12/06/2025 12/06/2024 DTaP/Tdap/Td Vaccines (2 - Td or Tdap) 06/29/2028 06/29/2018, 07/07/2015 Lipid Panel 09/25/2029 09/25/2024, 06/19, 06/12/2021, Additional history exists Zoster Vaccines (1 of 2) 2039 RSV Patients and Patients Aged 60 years or older (1 - 1-dose 75+ series) 2064 HIV Screening Completed 09/25/2024 Hepatitis C Screening Completed 09/25/2024 HIB Vaccines Aged Out No longer eligi ble based on patient's age to complete this topic HPV Vaccines Aged Out No longer eligi ble based on patient's age to complete this topic Hepatitis A Vaccines Aged Out No long er eligible based on patient's age to complete this topic IPV Vaccines Aged Out No longer eligi ble based on patient's age to complete this topic Meningococcal B Vaccine Aged Out No l onger eligible based on patient's age to complete this topic Meningococcal Vaccine Aged Out No garrett desean eligible based on patient's age to complete this topic RSV under 20 months Aged Out No longe r eligible based on patient's age to complete this topic Rotavirus Vaccines Aged Out No longer eligible based on patient's age to complete this topic Procedures Procedure Name Priority Date/Time Associated Diagnosis Comments URINALYSIS WITH REFLEX MICROSCOPIC Routine 01/31/2025 12:09 PM EDT XR CHEST 1 VIEW Routine 01/31/2025 11:47 AM EDT HELICOBACTER PYLORI AG, EIA, STOOL Routine 12/12/2024 9:30 AM EDT Generalized abdominal pain HEPATITIS C AB W/REFL TO HCV RNA, QN, PCR Routine 09/25/2024 2:09 PM EST Primary hypertension HIV 1/2 ANTIGEN/ANTIBODY, FOURTH GENERATION W/RFL Routine 09/25/2024 2:09 PM EST Primary hypertension HEMOGLOBIN A1C Routine 09/25/2024 2:09 PM EST Primary hypertension LIPID PANEL, STANDARD Routine 09/25/2024 2:09 PM EST Primary hypertension from Last 3 Months or Most Recently Relevant to Health Maintenance Results * Urinalysis w/reflex microscopic (01/31/2025 12:09 PM EDT) Color Urine Yellow [facility] Appearance Urine Clear [facility] PH 7.0 5.0 - 9.0 [facility] Glucose Urine UA Negative Negative mg/dL [facility] Urine Blood Negative Negative [facility] Specific [place] - Urine 1.010 1.005 - 1.025 [facility] Urine Protein Negative Neg-Trace mg/dL [facility] Urine Ketones Negative Negative mg/dL [facility] Nitrite Urine Negative Negative [facility] Leukocyte Esterase Urine Negative Negative [facility] 01/31/2025 12:0 9 PM EDT 01/31/2025 12:14 PM EDT Narrative [facility] - 01/31/2025 12:20 PM EDT 1207Urine, Catheterized us Generic External Data Provider LAB URINE ORDERAB LES Final Result [facility] [address] [place] [address] [phone] * XR Chest 1 View (01/31/2025 11:47 AM EDT) Anatomical Region Laterality Modality Chest Radiographic Gema ging 01/31/2025 11:4 7 AM EDT Narrative 01/31/2025 12:13 PM EDT ? [facility] ?[address] ?[place] [address] ?XRay Report ? Signed ? Patient: Noel,Garret ?MR#: [id number] ?? 4 ? : 1990 ?Acct:[id number] ? Age/Sex: 34 / M ?ADM Date: 01/31/25 ? Loc: HO.ED ? Attending Dr: ? Ordering Physician: Binh Case MD ?? Date of Service: 01/31/25 ?? Procedure(s): XR chest 1V ?? Accession Number(s): [id number] ? cc: Yuli Prakash MD; Binh Case MD ? EXAMINATION: ??XR CHEST 1 VIEW ? HISTORY: cp ? COMPARISON: There are no prior studies for comparison. ? FINDINGS: ??A single AP portable view of the chest performed at 12:02 PM ?? is submitted. There are low lung volumes. The lungs are clear. ??There ?? is no pleural effusion, pneumothorax, or pulmonary vascular congestion. ?? The heart is normal in size. ??The bones are intact. ? XR/XR chest 1V ?? IMPRESSION: ?? Low lung volumes. The lungs are clear. ? Electronically signed by: ??Milton Hernadez MD ??01/31/2025 12:10 PM EDT ? Dictated By: ?Milton Hernadez MD ? Signed By: ?<Electronically signed by Milton Hernadez MD in OV> ?01/31/25 1210 ? DD/ 1147 ? TD/TT: 01/31/25 1207 ? Retail Service Specialist: ? Procedure Note Samuel Blackman - 01/31/[address] [address] XRay Report Signed Patient: Lukas Noel#: [id number] 4 : 1990Acct:[id number] Age/Sex: 34 / MADM Date: 01/31/25 Loc: HO.ED Attending Dr: Ordering Physician: Binh Case MD Date of Service: 01/31/25 Procedure(s): XR chest 1V Accession Number(s): [id number] cc: Yuli Prakash MD; Binh Case MD EXAMINATION: XR CHEST 1 VIEW HISTORY: cp COMPARISON: There are no prior studies for comparison. FINDINGS: A single AP portable view of the chest performed at 12:02 PM is submitted. There are low lung volumes. The lungs are clear. There is no pleural effusion, pneumothorax, or pulmonary vascular congestion. The heart is normal in size. The bones are intact. XR/XR chest 1V IMPRESSION: Low lung volumes. The lungs are clear. Electronically signed by: Milton Hernadez MD 01/31/2025 12:10 PM EDT RP Dictated By: Milton Hernadez MD Signed By: <Electronically signed by Milton Hernadez MD in OV> 01/31/25 1210 DD/ 1147 TD/TT: 01/31/25 1207 Retail Service Specialist: [facility] External Provider IMG XR PROCEDURES Final Result * Helicobacter pylori??Antigen, EIA, Stool (12/12/2024 9:30 AM EDT) H pylori Ag Stool SEE NOTE [facility] Comment:HELICOBACTER PYLORI AG, EIA, STOOL Micro Number: [id number] Test Status: Final Specimen Source: Stool Specimen Quality: Adequate H.pylori Ag: Not Detected Antimicrobials, proton pump inhibitors, and bismuth preparations inhibit H. pylori and ingestion up to two weeks prior to testing may cause false negative results. If clinically indicated the test should be repeated on a new specimen obtained two weeks after discontinuing treatment. Reference Range: Not DetectedTHIS TEST WAS PERFORMED AT:[employer] [place] [phone] GORDON MD Stool Rectal contents / Unknown 12/12/2024 9:30 AM EDT 12/12/2024 1:53 PM EDT Yuli Davidson MD LAB BODY FLUIDS AND S TOOLS ORDERABLES Final Result [facility] [address] [place] [phone] * Hepatitis C Antibody with Reflex to HCV, RNA, Quantitative, Real-Time PCR (09/25/2024 2:09 PM EST) Hepatitis C Antibody Nonreactive Nonreactive [facility] Comment:Antibodies to HCV no t detected; does not exclude early acuteHCV infection. Blood Venous blood specimen / Unknown 09/25/2024 2:09 PM EST 09/25/2024 4:08 PM EST us Yuli Davidson MD LAB BLOOD ORDERABLES Final Result Performing Organization Address City/[facility]/ZIP Co de Phone Number [facility] [address] [place] [phone] * HIV-1/2 Antigen and Antibodies, Fourth Generation, with Reflexes (09/25/2024 2:09 PM EST) HIV AB/AG Nonreactive Nonreactive [facility] Comment:HIV-1 p24 Ag and/or HIV-1/HIV-2 Ab not detected.A test result that is nonreactive does not exclude thepossibility of exposure to or infection with HIV-1 and/orHIV-2. Nonreactive results in this assay for individualswith prior exposure to HIV-1 and/or HIV-2 may be due toantigen and antibody levels that are below the limit ofdetection of this assay.The [employer] HIV Ag/Ab Combo assay result andsupplemental assay results should be interpreted inconjunction with the patient's clinical presentation,history and other laboratory results. If the results areinconsistent with clinical evidence, additional testing issuggested to confirm the result. Blood Venous blood specimen / Unknown 09/25/2024 2:09 PM EST 09/25/2024 4:08 PM EST us Yuli Davidson MD LAB BLOOD ORDERABLES Final Result Performing Organization Address City/[facility]/ZIP Co de Phone Number [facility] [address] [place] [phone] * Hemoglobin A1c (09/25/2024 2:09 PM EST) Hemoglobin A1c 5.9 <6.0 % [facility] Comment:Hemoglobin A1C Refer ence Range Adults: 4.8 - 6.0 % Non diabetic: < 6.0 % Goal: < 7.0 %Additional Action Suggested: > 8.0 %Note: Hemoglobin A1c results are invalid for patients with abnormal amounts of HbF. Blood transfusions may impact the HbA1c concentration in the patient sample. Estimated Average Glucose 123 mg/dL [facility] Comment:eAG = Estimated ave rage glucose which is %A1C expressed asaverage glucose, using the formula of the J0A-OotdrrfGqekals Glucose study (ADAG), Diabetes Care, Vol.31,#8,Apr. 2007 Blood Venous blood specimen / Unknown 09/25/2024 2:09 PM EST 09/25/2024 4:08 PM EST Yuli Davidson MD LAB BLOOD ORDERABLES Final Result [facility] [address] [place] [phone] * (ABNORMAL) Lipid Panel, Standard (09/25/2024 2:09 PM EST) Triglycerides 306(H) <150 mg/dL [facility] Comment:Desirable Triglyceri de: less than 150 mg/dLBorderline High Triglyceride 150-199 mg/dLHigh Triglyceride: 200-499 mg/dLVery High Triglyceride: greater than or equal to 5OO mg/dL Cholesterol 251(H) <200 mg/dL [facility] Comment:Desirable Cholestero l: less than 200 mg/dLBorderline High Cholesterol: 200-239 mg/dLHigh Cholesterol: greater than 239 mg/dL LDL Cholesterol Calculated 141(H) <100 mg/dL [facility] Comment:Desirable LDL: less than 100 mg/dLNear Optimal/Above Optimal LDL: 110- 129 mg/dLBorderline High LDL: 130-159 mg/dLHigh LDL: 160-189 mg/dLVery High LDL: greater than or equal to 190 mg/dL HDL Cholesterol 49 >40 mg/dL [facility] Comment:Desirable HDL: great er than 40 mg/dL Note: This HDL assay may give artificially low results in patients with liver disease. Blood Venous blood specimen / Unknown 09/25/2024 2:09 PM EST 09/25/2024 4:08 PM EST us Yuli Davidson MD LAB BLOOD ORDERABLES Final Result [facility] [address] [place] [address] [phone] from Last 3 Months or Most Recently Relevant to Health Maintenance [facility] Care Teams Director Of Security Relationship Specialty Start Date End Date Yuli Prakash MD [address] [place] [address] PCP - General Internal Medicine 08/30/24
--- OUTSIDE RECORDS SUMMARY | 2025-01-31 12:48 | XMS_ITS | Clinical Summary ---
Author Organization [facility] Address [address] [phone] Phone Care Team Providers Care Tugboat Mate Name Role Phone Yuli Prakash MD Primary Care Provide r Allergies Active Allergy Reactions Criticality Noted Date Comments Amlodipine 06/29/2024 Leg swelling Hydralazine 08/30/2024 Other Reaction(s): Chest Pain Lisinopril Swelling 08/30/2024 Medications losartan (COZAAR) 100 MG tablet Take 100 mg by mouth 1 (one) time each day Active atorvastatin (LIPITOR) 20 MG tablet Take 20 mg by mouth in the morning. 06/29/2024 Active famotidine (PEPCID) 10 MG tablet Take 10 mg by mouth in the morning and 10 mg in the evening. Active Active Problems Problem Noted Date Diagnosed Date Constipation 08/30/2024 Primary hypertension 08/30/2024 COVID-19 05/26/2021 Mild intermittent asthma 06/20/2015 Generalized anxiety disorder 06/20/2015 Resistant hypertension 05/23/2015 Obesity 05/23/2015 Encounters Date Type Department Care Team Description 12/22/2024 Orders Only [facility] [address] [phone] Ubaldo Estrada MD Hypertension 12/21/2024 11:45 AM EDT Office Visit [facility] [address] [phone] Ubaldo Estrada MD Hypertension (Primary Dx); Obstructive sleep apnea syndrome from Last 3 Months Immunizations Immunization Administration Dates Next Due Influenza, Quadrivalent, With [...] Care Team (Late st Contact Info) Description 02/04/2025 9:15 AM EDT Clinical Support [facility] [address] [place] [phone] 02/07/2025 2:15 PM EDT Office Visit [facility] [address] [phone] Ubaldo Estrada MD [address] [phone] Health Maintenance Due Date Last Done Comments Hepatitis B Vaccine (1 of 3 - 19+ 3-dose series) 08/22 Pneumococcal Vaccine: Peds ( 0 to 5 Years) and At-Risk Patients (6 to 49 Years) (2 of 2 - PCV) 03/18/2016 03/18/2015 Influenza Vaccine (Season Ended) 2025 06/29/20 18 Procedures Procedure Name Priority Date/Time Associated Diagnosis Comments ALBUMIN, URINE, RANDOM Routine 12/21/2024 4:01 PM EDT from Last 3 Months Results * Albumin, urine, random (12/21/2024 4:01 PM EDT) Creatinine, Urine 60.32 mg/dL Se e order comments Urine Microalbumin <5.0 mg/L See order comments Microalbumin/Crea tinine Ratio TNP <30 ug/mg cr See order comments Comment: Unable to calculate albumin/creatinine ratio due to low microalbumin or creatinine result. 12/21/2024 4:01 PM EDT 12/21/2024 4:01 PM EDT us Ubaldo Estrada MD LAB URINE ORDERABLES Final [facility]ul t [facility] See order comments [place] [address] from Last 3 Months Insurance , [address] [place] [address] Medicaid [place] Care Teams Tugboat Mate Relationship Specialty Start Date End Date Yuli Prakash MD [address] [place] [phone] PCP - General Internal Medicine 09/03/24
--- OUTSIDE RECORDS SUMMARY | 2025-01-31 12:48 | XMS_ITS | Encounter Summary ---
Demographics Address [address] [place] [address] Mobile Phone Home Phone Email Address Email Address Email Address Preferred Language en Marital Status Single Christianity Affiliation Unknown Race Other Race Ethnic Group Unknown Author Organization [employer] Address [address] [place] [address] Care Team Providers Care Asbestos Surveyor Name Role Phone Yuli Prakash MD Primary Care Provide r Encounter Details Date Type Department Care Team (Late st Contact Info) Description 01/31/2025 Orders Only [facility] External Provider, [facility] Social History Tobacco Use Types Packs/Day Years Used Date Smoking Tobacco: Former Cigarettes Passive Smoke Exposure: Past Smokeless Tobacco: Never Alcohol Use Standard Drinks/Week Comments Never 0 [...] Orientation Straight 07/19/2022 10 :16 AM EDT documented as of this encounter Plan of Treatment Upcoming Encounters Date Type Department Care Team (Late st Contact Info) Description 03/06/2025 10:00 AM EDT Office Visit [facility] [address] [place] [address] Yuli Prakash MD [address] [place] [address] documented as of this encounter Procedures Procedure Name Priority Date/Time Associated Diagnosis Comments URINALYSIS WITH REFLEX MICROSCOPIC Routine 01/31/2025 12:09 PM EDT XR CHEST 1 VIEW Routine 01/31/2025 11:47 AM EDT documented in this encounter Results * Urinalysis w/reflex microscopic (01/31/2025 12:09 PM EDT) Color Urine Yellow [facility] Appearance Urine Clear [facility] PH 7.0 5.0 - 9.0 [facility] Glucose Urine UA Negative Negative mg/dL [facility] Urine Blood Negative Negative [facility] Specific [place] - Urine 1.010 1.005 - 1.025 [facility] Urine Protein Negative Neg-Trace mg/dL [facility] Urine Ketones Negative Negative mg/dL [facility] Nitrite Urine Negative Negative [facility] Leukocyte Esterase Urine Negative Negative [facility] 01/31/2025 12:0 9 PM EDT 01/31/2025 12:14 PM EDT Narrative [facility] - 01/31/2025 12:20 PM EDT 1207Urine, Catheterized us Generic External Data Provider LAB URINE ORDERAB LES Final Result [facility] [address] [place] [address] [phone] * XR Chest 1 View (01/31/2025 11:47 AM EDT) Anatomical Region Laterality Modality Chest Radiographic Gema ging 01/31/2025 11:4 7 AM EDT Narrative 01/31/2025 12:13 PM EDT ? [facility] ?[address] ?[place] [address] ?XRay Report ? Signed ? Patient: Garret Noel ?MR#: [id number] ?? 4 ? : 1990 ?Acct:[id number] ? Age/Sex: 34 / M ?ADM Date: 01/31/25 ? Loc: HO.ED ? Attending Dr: ? Ordering Physician: Binh Case MD ?? Date of Service: 01/31/25 ?? Procedure(s): XR chest 1V ?? Accession Number(s): [id number] ? cc: Yuli Prakash MD; Binh Case [...] ??Milton Hernadez MD ??01/31/2025 12:10 PM EDT ?? RP ? Dictated By: ?Milton Hernadez MD ? Signed By: ?<Electronically signed by Milton Hernadez MD in OV> ?01/31/25 1210 ? DD/ 1147 ? TD/TT: 01/31/25 1207 ? Sound Engineering Technician: ? Procedure Note Donotuseinterpreter, Image - 01/31/[address] [address] XRay Report Signed Patient: Adama NoelR#: [id number] 4 : 1990Acct:[id number] Age/Sex: 34 / MADM Date: 01/31/25 Loc: .ED Attending Dr: Ordering Physician: Binh Case MD Date of Service: 01/31/25 Procedure(s): XR chest 1V Accession Number(s): [id number] cc: Yuli Prakash MD; Binh Case MD [...] Milton Hernadez MD 01/31/2025 12:10 PM EDT Dictated By: Milton Hernadez MD Signed By: <Electronically signed by Milton Hernadez MD in OV> 01/31/25 1210 DD/ 1147 TD/TT: 01/31/25 1207 Sound Engineering Technician: [facility] External Provider IMG XR PROCEDURES Final Result documented in this encounter Visit Diagnoses Not on filedocumented in this encounter Additional Health Concerns Assessment Noted Time PHQ-9 Depression Total Score: 0 08/30/20 24 10:35 AM EST documented as of this encounter Care Teams Asbestos Surveyor Relationship Specialty Start Date End Date Yuli Prakash MD [address] [place] [address] PCP - General Internal Medicine 08/30/24 documented as of this encounter
--- NOTE | 2025-01-31 13:45 | PC.NURSE ---
UA results appear negative, CXR interprets low lung volume but lungs are clear. EKG = nsr with sinus arrhythmia.
[2025-01-31 14:13] VITALS: BP 150/100; PULSE 76; RESP 15; TEMP 36.4; O2SAT 99
[2025-01-31 15:45] VITALS: BP 145/95; PULSE 78; RESP 16; TEMP 36.4; O2SAT 99
== END 2025-01-31 15:48 | disposition home or self-care (01) ==
PROVIDERS: Emergency Provider Emergency Medicine; PCP Internal Medicine
DX: R07.9 Chest pain, unspecified (principal); R11.2 Nausea with vomiting, unspecified; I10 Essential (primary) hypertension
CPT/HCPCS: 36415; 71045; 80053; 81003; 84484; 85025; 93005; 96374; 99284; 99285; J2405

== ENCOUNTER → 2025-01-31 11:27 | Outpatient (BNV) | payer MEDICAID, SELFPAY | PROVIDERS: Emergency Provider Emergency Medicine; PCP Internal Medicine; Visit Provider Internal Medicine Cardiovascular Disease | DX: R07.9 Chest pain, unspecified (principal) | CPT/HCPCS: 93010 ==

== ENCOUNTER → 2025-01-31 11:47 | Outpatient (BNV) | payer MEDICAID, SELFPAY | PROVIDERS: Emergency Provider Emergency Medicine; PCP Internal Medicine; Visit Provider Radiology Diagnostic Radiology | DX: R94.2 Abnormal results of pulmonary function studies (principal) | CPT/HCPCS: 71045 ==